=== PATIENT | male | born 1985 | race African-American/Black ===

== ENCOUNTER 2020-11-06 02:01 | Emergency (ER) | payer OTHER ==
[~2020-11-06] VITALS: Ht 175.3 cm; Wt 90.7 kg
[2020-11-06] MEDS ORDERED: AFRIN15 M1 NASAL (02:39)
[2020-11-06 03:04] VITALS: BP 138/95
== END 2020-11-06 03:01 | disposition home or self-care (01) ==
LOC: ER 02:01
DX: R09.81 Nasal congestion (principal)